=== PATIENT | female | born 1955 | race Caucasian/White ===

== ENCOUNTER 2017-08-09 10:30 | Day surgery (SDC) | payer OTHER ==
[2017-08-05 14:53] VITALS: BMI 34.0
[~2017-08-09 10:30] MED LIST: LACTATED RINGERS 1,000 ML IV SCH
[2017-08-09 11:25] VITALS: RESP 16; TEMP 97
[2017-08-09] MEDS ORDERED: LIDOCAINE 1% 20 ML VIAL (10MG/ML) FOR IV START INTRADERMA ONE (11:26)
[2017-08-09] MEDS ORDERED: LIDOCAINE 1% INJ 10MG/ML (20 ML MDV) ONE (12:37)
[2017-08-09] MEDS ORDERED: PROPOFOL 10 MG/ML 20 ML VIAL IV ONE (12:37)
--- NOTE | 2017-08-09 13:18 | P.PCN ---
Date of Procedure: 08/09/17 Procedure(s) Performed: Procedures: 1. Esophagogastroduodenoscopy and biopsy. 2. Total colonoscopy and biopsy. Preoperative diagnosis: Epigastric pain and change in bowel habits and abdominal pain. Postoperative diagnosis: 1. Small sliding hiatal hernia. 2. Mild antral gastritis. 3. Normal colon. Preparation: HalfLytely prep. Sedation: Was provided by anesthesia. Brief history: The patient is a 62-year-old female who is scheduled for this evaluation because of abdominal pain and change in bowel habits. She has history of esophageal ulcers. Procedure: With the patient on her left lateral decubitus position and after informed consent and adequate sedation, I passed the Olympus-GIF 160 video upper endoscope through the cricopharyngeus down the esophagus. GE junction was around 36 cm from the incisors. There was a small sliding hiatal hernia no esophagitis, strictures or Miller's esophagus. The endoscope was then passed into the stomach which was insufflated with air and inspected in detail including the retroflex view in the cardia. There was mottling and erythema in the antrum but no ulcers or erosions. Pyloric channel, duodenal bulb, post bulbar area and descending duodenum appeared within normal limits. I obtained biopsies from the duodenum, antrum and esophagus then the endoscope was withdrawn and I then proceeded with the colonoscopy. Perianal area did not show any fissures or fistulas. There were no masses felt on digital rectal examination. The Olympus CFQ 160L video colonoscope was then inserted in the rectum in the usual fashion and advanced to the cecum. Colon appeared healthy with no edema, erythema, friability, ulceration, exudation or spontaneous bleeding. No polyps or tumors were seen or any obvious diverticular disease. I retroflexed the endoscope in the rectum before the endoscope was withdrawn. Biopsies were obtained from the right colon before the endoscope was withdrawn. The patient tolerated the procedure well. Plan: The patient was reassured. Will await biopsy results and make further plans.
[2017-08-09 14:00] VITALS: BP 110/61; PULSE 59
== END 2017-08-09 14:00 | disposition home or self-care (01) ==
LOC: ORWHC2ENDO 10:30
DX: K29.50 Unspecified chronic gastritis without bleeding (principal); K52.89 Other specified noninfective gastroenteritis and colitis; K44.9 Diaphragmatic hernia without obstruction or gangrene; R19.4 Change in bowel habit; Z87.19 Personal history of other diseases of the digestive system; I10 Essential (primary) hypertension; E07.9 Disorder of thyroid, unspecified; K21.9 Gastro-esophageal reflux disease without esophagitis; Z79.899 Other long term (current) drug therapy; Z88.0 Allergy status to penicillin
CPT/HCPCS: 88305; 88342; 45380; 43239; J2001; J2704